=== PATIENT | male | born 1980 | race African-American/Black ===

== ENCOUNTER 2016-12-10 03:23 | Emergency (ER) | payer OTHER ==
--- NOTE | ~2016-12-10 | CT4 ---
[facility] A Service of [facility] RADIOLOGY TEXT RESULTS PATIENT: COSME MEHTA LOCATION: [facility] : [birth year] UNIT #: [id number] AGE: [address]: Vanessa Cuenca SEX: M ORDER DR: [id number] [facility] [address] [place], [place] [address] [id number] E MR#: [id number] Acc #: [id number] NAME: COSME MEHTA. : 1980 SEX: M STUDY DATE/TIME: 12/10/2016 2:56 UNIT: [facility] ROOM: STUDY DESCRIPTION: CT Abd and Pelv Wo Cont Attending Physician: Vanessa Cuenca Pa-C Ordering Physician: Vanessa Cuenca Pa-C Primary Care Physician: Piedad Primary Care Physician MEDICAL IMAGING REPORT This report is preliminary unless electronic signature is present EXAM Abdomen and pelvis CT, no contrast, 12/10/2016. INDICATION 36-year-old male with upper abdominal pain for a week. Pain mostly in the kidneys. History of asthma. TECHNIQUE Noncontrast abdomen and pelvis CT was performed. This CT exam was performed with one or more of the following radiation dose reduction techniques: automatic exposure control, adjustment of mA and/or kV according to patient size, and iterative reconstruction. COMPARISON STUDIES No comparisons. FINDINGS CT ABDOMEN: Exam markedly degraded by noncontrast technique. Included lung bases demonstrate pulmonary hyperinflation. No pericardial or pleural effusion. Aorta unremarkable with the exception of atherosclerotic change. Spleen and adrenal glands are unremarkable. Pancreas grossly unremarkable. Gallbladder contracted. Liver unremarkable. There is no radiopaque stone or hydronephrosis of either kidney. Ureters not well visualized or assessed due to a lack of fat surrounding them. CT PELVIS: Bladder unremarkable. Prostate unremarkable. No free fluid or drainable fluid collection in the pelvis. Bowel unremarkable. Appendix normal. Inguinal canals are unremarkable. No suspicious bone lesion. [facility] A Service of [facility] RADIOLOGY TEXT RESULTS PATIENT: COSME MEHTA LOCATION: [facility] : 80 UNIT #: [id number] AGE: [address]: Vanessa Cuenca SEX: M ORDER DR: IMPRESSION Negative noncontrast abdomen and pelvis CT. No hydronephrosis or radiopaque stone associated with either kidney. Appendix normal. No bowel obstruction or drainable fluid collection. Dictated by... Cosme Kessler M.D. THIS IS AN ELECTRONICALLY VERIFIED REPORT Cosme Kessler M.D. at 12/10/2016 10:09 PM FRANCK/waldemar TD: 12/10/2016 14:48 JOB #: [id number] MEDICAL IMAGING REPORT Page 1 of 1 COPY
[2016-12-10 02:45] LABS: URINE SOURCE CLEAN CATCH
[2016-12-10 02:50] LABS: BASOPHIL% 0.6 % (0-2.5); EOSINOPHIL# 0.4 X10e3 (0-0.7); EOSINOPHIL% 5.5 % (0.0-7.0); HEMATOCRIT 45.9 % (38.0-50.0); HEMOGLOBIN 15.3 gm/dL (13.0-16.0); LYMPHOCYTE# 2.7 X10e3 (1.0-3.5); LYMPHOCYTE% 41.9 % (17.0-45.0); MEAN CELL VOLUME 91.3 FL (83-96); MEAN CORPUSCULAR HEMOGLOBIN 30.4 PG (28-34); MEAN CORPUSCULAR HGB CONC 33.3 g/dL (30-36); MEAN PLATELET VOLUME 7.4 FL (6.5-11.5); MONOCYTE# 0.6 X10e3 (0-1.0); MONOCYTE% 9.7 % (3.0-12.0); NEUTROPHIL# 2.8 X10e3 (1.5-7.1); NEUTROPHIL% 42.3 % (40-75); PLATELET COUNT 206 X10e3 (140-420); RED BLOOD COUNT 5.03 X10e (3.90-5.60); RED CELL DISTRIBUTION WIDTH 14.7 % (11.0-15.5); WHITE BLOOD COUNT 6.5 X10e3 (4.0-10.5)
[2016-12-10 02:52] LABS: URINE APPEARANCE CLEAR; URINE BILIRUBIN NEG (NEG); URINE BLOOD NEG (NEG); URINE COLOR YELLOW; URINE GLUCOSE NEG (NEG); URINE KETONE TRACE (NEG); URINE LEUKOCYTE ESTERASE TRACE (NEG); URINE NITRATE NEG (NEG); URINE PROTEIN NEG (NEG); URINE SPECIFIC GRAVITY 1.036 (1.003-1.035)
[2016-12-10 02:53] LABS: DIFF IND NO
[2016-12-10 02:55] LABS: U HYALINE CASTS AUWI 0-2 /[LPF]; URINE BACTERIA AUWI NEG (NEGATIVE); URINE SQUAMOUS EPITHELIAL CELL NONE SEEN /[HPF]
[2016-12-10 02:56] LABS: CULTURE INDICATED? NO
[2016-12-10 03:14] LABS: ALBUMIN SERUM 4.4 g/dL (3.5-5.0); BILIRUBIN,TOTAL 0.4 mg/dL (0.2-2.0); BUN/CREATININE RATIO 15.83; CALCIUM SERUM 9.5 mg/dL (8.4-10.2); CREATININE SERUM 1.2 mg/dL (0.6-1.4); GLOM FILT RATE Estimated 89.7 mL/min (>60); PROTEIN TOTAL SERUM 7.2 g/dL (6.0-8.3)
[~2016-12-10 03:23] MED LIST: ALBUTEROL17 G1 IH; TESSALON200 MG PO; ZITHROMAX1 G/PKT PO
== END 2016-12-10 04:44 | disposition home or self-care (01) ==
LOC: CED 03:23
PROVIDERS: Physician Assistant Medical
DX: R10.9 Unspecified abdominal pain (principal); J45.909 Unspecified asthma, uncomplicated; F17.210 Nicotine dependence, cigarettes, uncomplicated; Z98.890 Other specified postprocedural states
CPT/HCPCS: 36415; 74176; 80053; 81003; 85025; 99284

== ENCOUNTER 2017-03-02 16:54 | Emergency (ER) | payer OTHER | END 2017-03-02 18:08 | disposition home or self-care (01) | LOC: CED 16:54 → CFTX 16:54 | DX: H66.42 Suppurative otitis media, unspecified, left ear (principal); J45.909 Unspecified asthma, uncomplicated | CPT/HCPCS: 10060; 87070; 87205; 99282 ==

== ENCOUNTER 2017-03-03 18:39 | Emergency (ER) | payer OTHER | END 2017-03-03 21:10 | disposition left against medical advice (07) | LOC: CED 18:39 | DX: Z53.21 Procedure and treatment not carried out due to patient leaving prior to being seen by health care provider (principal) ==